=== PATIENT | male | born 1970 ===

== ENCOUNTER → 2018-02-10 | Outpatient (CLI) | payer OTHER ==
--- NOTE | 2018-02-10 19:50 | CONS ---
CONSULTATION DATE OF SERVICE: 02/10/2018 This patient is a 47-year-old gentleman who has been evaluated in the sleep center for possible obstructive sleep apnea-hypopnea syndrome. HISTORY OF PRESENT ILLNESS/SLEEP-WAKE EVALUATION: Patient had a sleep study about 8 years ago in another institution, and at that time they did not tell him about sleep apnea. At present his sleep schedule is from around 8 to 10 p.m. until 5 a.m. on weekdays and from around 10 to midnight until 8 to 10 a.m. on weekends. He sometimes has problems with falling asleep for more than 30 minutes. He has a TV set in the bedroom. He usually sleeps on the side position with snoring, witnessed episodes of stopped breathing during sleep and grinding teeth. The patient wakes up from sleep up to 20 times with more than 5 episodes of nocturia, episodes of gasping for air, restless legs, sleeptalking. In the morning patient wakes up tired, worries about his sleep, has episodes of irritability, depression and anxiety. Sperry Sleepiness Scale is 6. PAST MEDICAL HISTORY: Positive for: 1. Nasal fracture. 2. Back problems. 3. Hip problems. 4. Pain in the back. 5. Pain in the legs. PAST SURGICAL HISTORY: 1. Surgery for nasal fracture. 2. Left hand reconstruction. MEDICATIONS: Medical marijuana. SOCIAL HISTORY: Positive for smoking for about 25 years up to 2 packs per day. Alcohol consumption occasional. FAMILY HISTORY: Hypertension, heart problems, stroke, arthritis, lung problems, sleep apnea in his father, snoring, pneumoniae, insomnia, acid reflux, ulcers, diabetes, restless legs. REVIEW OF SYSTEMS: Multiple awakenings from sleep, sleepiness during the day. PHYSICAL EXAMINATION: GENERAL: A pleasant gentleman without distress. VITAL SIGNS: BP 130/91, HR 71, RR 16, height 5 feet 8 inches, weight 253.6, body mass index 38.4, temperature 97.9, oxygen saturation at room air 98%. HEENT: PERRLA, EOMI. Evaluation of oropharynx showed tongue protrudes midline. Extremely low position of soft palate. Mallampati IV. NECK: Supple. No JVD. Thyroid is not palpable. Wide neck; 18 inches in circumference. LUNGS: Clear to percussion and to auscultation. Good air exchange. No wheezing or rhonchi. HEART: S1, S2 regular. No murmurs, gallops or rubs. ABDOMEN: Soft and nontender. Bowel sounds are present. No organomegaly. EXTREMITIES: No clubbing or cyanosis. MARKETING DESIGNER: Awake, alert, and oriented X3. Cranial nerves 2 to 7 intact. There is no fasciculation or atrophy. noted. No focal deficits observed. IMPRESSION: 1. Snoring, witnessed episodes of stopped breathing during sleep, extremely low position of soft palate, wide neck; obstructive sleep apnea-hypopnea syndrome. 2. Obesity; body mass index 38.4. 3. History of nasal fracture, status post surgery for nasal fracture in the past. 4. Status post left hand reconstruction. 5. Back pain. 6. Neck pain. 7. Hip problems. 8. Smoker up to 50 pack/years. PLAN: 1. Polysomnography for evaluation of patient's breathing during sleep. 2. CPAP/BiPAP titration if sleep study confirms obstructive sleep apnea-hypopnea syndrome. 3. Preferable position during sleep on the side. 4. No driving if patient feels any sleepiness. 5. I will see patient for follow up visit to explain results of testing and following plan. Thank you very much for referring this patient for consultation. Sincerely, Anton Pablo MD, PhD, FAASM Diplomat of [place] [employer] [place] [employer] [facility] [place] MMTOSHAL / JESSE: [id number] /
== END ==
LOC: SLEEP 14:26
PROVIDERS: ATTEND Internal Medicine
DX: G47.33 Obstructive sleep apnea (adult) (pediatric) (principal); E66.9 Obesity, unspecified; Z87.81 Personal history of (healed) traumatic fracture; M54.9 Dorsalgia, unspecified; F17.200 Nicotine dependence, unspecified, uncomplicated; M54.2 Cervicalgia; R29.898 Other symptoms and signs involving the musculoskeletal system; Z68.38 Body mass index [BMI] 38.0-38.9, adult; Z79.899 Other long term (current) drug therapy; Z99.89 Dependence on other enabling machines and devices
CPT/HCPCS: 99211